=== PATIENT | female | born 1965 | race Caucasian/White ===

== ENCOUNTER 2017-12-25 12:49 | Emergency (ER) | payer MEDICAID ==
[~2017-12-25] VITALS: Ht 167.6 cm; Wt 61.8 kg
[~2017-12-25 12:49] MED LIST: CLARITIN 10 MG10 MG PO; HYDROCODONE-APA1 TAB PO; PRILOSEC20 MG PO
[2017-12-25 12:58] VITALS: Ht 167.6 cm; Wt 61.8 kg
[2017-12-25] MEDS ORDERED: PROAIR (12:59)
[2017-12-25] MEDS ORDERED: ALBUTEROL0.63 MG/3 (12:59)
[2017-12-25 14:04] LABS: APPEARANCE HAZY (CLEAR); BILIRUBIN NEGATIVE (NEGATIVE); COLOR YELLOW (YELLOW); EPITHELIAL CELLS 0-5 /hpf (0-5); GLUCOSE NEGATIVE (NEGATIVE); KETONE NEGATIVE (NEGATIVE); MUCUS >1+ /lpf (NONE SEEN); NITRITE NEGATIVE (NEGATIVE); PROTEIN NEGATIVE (NEGATIVE); SPECIFIC GRAVITY 1.015 (1.005-1.020)
[2017-12-25 14:05] LABS: BACTERIA MODERATE /hpf (NONE SEEN)
[2017-12-25 14:11] LABS: BASOPHILS 0.3 % (0-2); EOSINOPHILS 0.6 % (0-7); HEMATOCRIT 35.3 % (36.0-48.0); IMMATURE GRANULOCYTES 0.3 % (0-5); LYMPHOCYTES 10.7 % (15-50); MCH 25.5 pg (26.0-34.0); MCHC 31.2 g/dL (31.0-37.0); MCV 81.7 fL (80.0-100.0); MEAN PLATELET VOLUME 10.2 fL (7.4-10.4); MONOCYTES 5.1 % (2-11); RBC 4.32 10x6/uL (4.00-5.40); RDW 17.6 % (11.5-14.5); WBC 11.8 10x3/uL (4.8-10.8)
[2017-12-25 14:13] LABS: PLATELET COUNT 338 10x3/uL (130-400)
[2017-12-25 14:18] LABS: ALBUMIN 3.6 g/dL (3.4-5.0); ALKALINE PHOSPHATASE 92 U/L (46-116); ALT (SGPT) 13 U/L (10-68); AMYLASE - SERUM 29 U/L (25-115); BILIRUBIN - TOTAL 0.24 mg/dL (0.2-1.3); CALC OSMOLALITY 270 mosm/kg (275-300); CALCIUM 8.9 mg/dL (8.5-10.1); CARBON DIOXIDE 23.7 mmol/L (21.0-32.0); CHLORIDE - SERUM 101 mmol/L (98-107); CREATININE - SERUM 0.6 mg/dL (0.6-1.3); GLUCOSE 87 mg/dL (74-106); LIPASE 80 U/L (73-393); POTASSIUM - SERUM 3.9 mmol/L (3.5-5.1); SODIUM 137 mmol/L (136-145); UREA NITROGEN 8 mg/dL (7-18); eGFR NON AFRICAN AMERICAN > 90 mL/min (90-120)
[2017-12-25] MEDS ORDERED: CHRONULAC30 ML PO (14:32)
[2017-12-25] MEDS ORDERED: BENTYL 20 MG TA20 MG PO (14:32)
[2017-12-25] MEDS ORDERED: MACROBID100 MG PO (14:41)
[2017-12-25 15:36] VITALS: BP 117/75
== END 2017-12-25 14:52 | disposition home or self-care (01) ==
LOC: D.ER 12:49
PROVIDERS: Family Medicine
DX: K59.00 Constipation, unspecified (principal); N39.0 Urinary tract infection, site not specified; R11.0 Nausea; R10.9 Unspecified abdominal pain; I10 Essential (primary) hypertension; F17.200 Nicotine dependence, unspecified, uncomplicated